=== PATIENT | male | born 1985 | race Caucasian/White ===

== ENCOUNTER 2017-04-20 18:27 | Emergency (ER) | payer BC ==
--- NOTE | 2017-04-20 18:53 | EDM.PDOC ---
ED HPI GENERAL MEDICAL PROBLEM - General Chief Complaint: ENT Problem Stated Complaint: TOOTH ACHE Time Seen by Provider: 04/20/17 18:44 - History of Present Illness INITIAL COMMENTS - FREE TEXT/NARRATIVE: 31-year-old male presents emergency room with a toothache. This pain is been getting worse over the last several days. It is right upper. The patient had dental repair done in November that had about a 50-50 chance of holding the patient thinks his tooth is acting up. Patient denies any fevers or chills has had no neck pain. At times and the pain gets worse all side of his jaw was sore but he has not noticed any facial swelling. Right Upper Oral/Mouth Pain Score (Numeric/FACES): 4 - Related Data Allergies Allergy/AdvReac Type Severity Reaction Status Date / Time No Known Allergies Allergy Verified 04/20/17 18:45 Home Meds: Home Meds Amoxicillin [IJP: Amoxicillin] 500 mg PO .THREE TIMES DAILY #30 cap 04/20/17 [Rx ] Hydrocodone/Acetaminophen [[place] 5-325 Tablet] 1 - 2 each PO Q6H PRN #10 tablet 04/20/17 [Rx] ED ROS ENT - Review of Systems Review Of Systems: See Below Constitutional: Reports: No Symptoms. Denies: Fever HEENT: Reports: Dental Pain. Denies: Ear Pain, Rhinitis, Throat Pain, Throat Swelling Respiratory: Reports: No Symptoms Cardiovascular: Reports: No Symptoms GI/Abdominal: Reports: No Symptoms ED EXAM, ENT - Physical Exam Exam: See Below Exam Limited By: No Limitations General Appearance: Alert, No Apparent Distress Ears: Normal External Exam, Normal Canal, Hearing Grossly Normal, Normal TMs Nose: Normal Inspection, Normal Mucousa, No Blood Mouth/Throat: Normal Lips, Normal Oropharynx, Other (Right upper rear teeth are examined he has 1 with a significant erosion at the one just posterior to it is had some repair work to it he's had some regional gum swelling and redness around these 2 teeth it is hard to know which one is causing what) Head: Atraumatic, Normocephalic Neck: Normal Inspection, Supple, Non-Tender, Full Range of Motion. No: Lymphadenopathy (L), Lymphadenopathy (R) Respiratory/Chest: No Respiratory Distress, Lungs Clear, Normal Breath Sounds Cardiovascular: Regular Rate, Rhythm, No Edema, No Murmur Course - Vital Signs Last Recorded V/S: Last Vital Signs Temp 36.3 C 04/20/17 18:45 Pulse 81 04/20/17 18:45 Resp 16 04/20/17 18:45 BP 142/95 H 04/20/17 18:45 Pulse Ox 100 04/20/17 18:45 Departure - Departure Time of Disposition: 18:54 Disposition: Home, Self-Care 01 Clinical Impression: Pain due to dental caries, Pain, dental - Discharge Information Prescriptions: Amoxicillin [IJP: Amoxicillin] 500 mg PO .THREE TIMES DAILY #30 cap Hydrocodone/Acetaminophen [[place] 5-325 Tablet] 1 - 2 each PO Q6H PRN #10 tablet PRN Reason: Pain Instructions: Dental Caries Referrals: PCP,None [Primary Care Provider] - Forms: ED Department Discharge Additional Instructions: Return to the emergency room with any questions or problems. Follow-up with your dentist as soon as possible. Start the amoxicillin this evening. One 3 times daily until all gone. Ibuprofen is the mainstay of your pain control take up to 800 mg 3 times daily with meals. I have given you a prescription for hydrocodone use one or 2 every 6 hours as needed for the more severe pain use this mostly at night. Allow 12 hours after using this medication before driving or returning to work
== END 2017-04-20 19:12 | disposition home or self-care (01) ==
LOC: JD.ED 18:27
DX: K02.9 Dental caries, unspecified (principal); Z79.2 Long term (current) use of antibiotics
CPT/HCPCS: 99283